=== PATIENT | female | born 1995 | race Caucasian/White ===

== ENCOUNTER 2019-07-14 13:03 | Emergency (ER) | payer OTHER, MEDICAID ==
[2019-07-14 13:17] VITALS: BP 128/75
[2019-07-14] MEDS ORDERED: ACETAMINOPHEN 325 MG TABLET PO ONE (13:55)
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
== END 2019-07-14 14:40 | disposition home or self-care (01) ==
LOC: ER 13:03
DX: O26.892 Other specified pregnancy related conditions, second trimester (principal); R10.11 Right upper quadrant pain; R10.30 Lower abdominal pain, unspecified; V49.40XA Driver injured in collision with unspecified motor vehicles in traffic accident, initial encounter; Z88.0 Allergy status to penicillin; Z3A.19 19 weeks gestation of pregnancy
CPT/HCPCS: 99283

== ENCOUNTER 2019-12-10 16:17 | Inpatient (IN) | payer MEDICAID ==
[2019-12-10] MEDS ORDERED: RINGERS SOLUTION,LACTATED 1,000 ML IV ONE (16:21)
[2019-12-10 16:51] LABS: HEMATOCRIT 37.5 % (36.0-47.0); HEMOGLOBIN 13.2 g/dL (12.0-15.5); MEAN CORPUSCULAR HEMOGLOBIN 32.6 pg (27.0-33.4); MEAN CORPUSCULAR VOLUME 93 fl (80-97); PLATELET COUNT 152 10^3/uL (150-450); RED BLOOD COUNT 4.03 10^6/uL (3.72-5.28); RED CELL DISTRIBUTION WIDTH 13.4 % (11.5-14.0); WHITE BLOOD COUNT 8.2 10^3/uL (4.0-10.5)
[2019-12-10] MEDS ORDERED: OXYTOCIN/0.9 % SODIUM CHLORIDE 30 UNIT/500 ML RTUINJ IV PRN (17:08)
[2019-12-10 17:13] LABS: APPEARANCE,URINE SLIGHTLY-CLOUDY; BILIRUBIN,URINE NEGATIVE (NEGATIVE); COLOR,URINE YELLOW; GLUCOSE, URINE NEGATIVE (NEGATIVE); KETONES,URINE NEGATIVE (NEGATIVE); LEUKOCYTE ESTERASE,URINE MODERATE (NEGATIVE); NITRITE,URINE NEGATIVE (NEGATIVE); PROTEIN,URINE NEGATIVE (NEGATIVE); URINE SPECIFIC GRAVITY 1.013; UROBILINOGEN,URINE NEGATIVE mg/dL (<2.0)
[2019-12-10] MEDS ORDERED: OXYTOCIN 10 UNIT/ML VIAL ONE (17:15)
[2019-12-10] MEDS ORDERED: LIDOCAINE 1% INJ-PF (10 MG/ML) 30 ML SDV ONE (17:15)
[2019-12-10] MEDS ORDERED: MISOPROSTOL 0.2 MG TABLET ONE (17:15)
[2019-12-10] MEDS ORDERED: OXYTOCIN/0.9 % SODIUM CHLORIDE 30 UNIT/500 ML RTUINJ ONE (17:15)
[2019-12-10] MEDS ORDERED: MISOPROSTOL 0.2 MG TABLET PR ONE (17:16)
[2019-12-10] MEDS: RINGERS SOLUTION,LACTATED 1,000 ML IV PRN ×2 (17:20→23:22)
[2019-12-10 17:34] LABS: URINE AMPHETAMINES SCREEN NEGATIVE; URINE BARBITURATES SCREEN NEGATIVE; URINE BENZODIAZEPINES SCREEN NEGATIVE; URINE COCAINE SCREEN NEGATIVE; URINE MARIJUANA (THC) SCREEN NEGATIVE; URINE METHADONE SCREEN NEGATIVE; URINE PHENCYCLIDINE SCREEN NEGATIVE
--- NOTE | 2019-12-10 17:55 | Admission Physical ---
Datetime Report Generated by CPN: 12/10/2019 17:55 CURRENT ADMISSION Chief Complaint: Other Indication for Induction: IUGR; Oligohydramnios Admit Impression : Term, Intrauterine ; No Active Labor; Intact Membranes Admit Plan: Admit to Unit; Initiate Labor Induction Protocol ALLERGIES Medication Allergies: Yes Medication Allergies: amoxicillin/MO/Hives (12/10/2019) Latex: No Latex Allergies OBSTETRICAL HISTORY : 2 Para: 0 Term: 0 : 0 SAB: 1 IAB: 0 Ectopic: 0 Livin Cesareans: 0 VBACs: 0 Multiple Births: 0 Gestational Diabetes: No Rh Sensitization: No Incompetent Cervix: No CHRIS: No Infertility: No ART Treatment: No Uterine Anomaly: No IUGR: No Hx Previous C/S: No Macrosomia: No Hx Loss/Stillborn: No PIH: No Hx : No Placenta Previa/Abruption: No Depression/PP Depression: No PTL/PROM: No Post Hemorrhage: No Current Procedures: Ultrasound Obstetrical History Comments: G1-SAB G2-Current SEE RECORDS Alcohol: No Marijuana : No Cocaine: No Other Illicit Drugs: No Cigarettes: Never Smoker. 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 Surgery: No Heart Disease: No Hosp/Surgery: No Autoimmune Disorder: No Anesthetic Complications: No Kidney Disease: No Abnormal Pap Smear: Yes Neuro/Epilepsy: No Psychiatric Disorders: No Other Medical Diseases: No Hepatitis/Liver Disease: No Significant Family History: No Varicosities/Phlebitis: No Trauma/Violence : No Thyroid Dysfunction: No Medical History Comments: 06/09/2019-abn pap INFECTIOUS HISTORY Gonorrhea: No Genital Herpes: No Chlamydia: No Tuberculosis: No Syphilis: No Hepatitis: No HIV/AIDS Exposure: No Rash or Viral Illness: No HPV: No PHYSICAL EXAM General: Normal HEENT: Normal Neurologic: Normal Thyroid: Deferred Heart: Normal Lungs: Normal Breast: Deferred Back: Normal Abdomen: Normal Genitourinary Exam: Normal Extremities: Normal DTRs: Normal Pelvic Type: Adequate Vital Signs: Reviewed VAGINAL EXAM Dilatation: 3 Effacement: 70 Station: -2 Contraction Comments: none MEMBRANES Membranes: Intact FETUS A Monitoring: External US FHR- Baseline: 120 Variability: Moderate 6-25bpm Accelerations: 15X15 Decelerations: None FHR Category: Category I Presentation: Vertex Admit Comment: 24yo at 40+3ega with oligohydramnios of CLAUDINE 2.3. EFW 6#7oz. Unknown previously regardng oligohydramnios. Amnisure negative. GBS negative. Cvx favorable - will proceed with IOL. Pt reports that she was 6#5oz so growth may be constitutionaly. Risks/benefits/alternatives reviewed and she desires to proceed wiht procedure. ASCUS +HRHPV pap smear 06/2019. Will need pap colpo after delivery within 8-12 wks. Admit to labor and delivery and proceed with IOL and pitocin. PLANS FOR LABOR AND DELIVERY Labor and Delivery: None Pain Management: Epidural Feeding Preference: Breast Benefit of Breast Feed Discussed: Yes Circumcision: Yes INFORMED CONSENT Informed Consent Obtained: Vaginal Delivery; Risks, Benefits and Alternatives Discussed Signature: with User ID: [email or web address]
[2019-12-11] MEDS ORDERED: FENTANYL/BUPIVACAINE/NS/PF 300 MCG/150 ML RTUINJ EPI ONE (00:15)
[2019-12-11] MEDS ORDERED: EPHEDRINE SULFATE INJ 50 MG/1 ML AMPULE ONE ×2 (00:15→02:50)
[2019-12-11] MEDS ORDERED: ROPIVACAINE HCL 0.2% INJ/PF (2 MG/ML) 20 ML SDV ONE ×3 (00:15→09:52)
[2019-12-11] MEDS ORDERED: FENTANYL CITRATE INJ/PF 100 MCG/2 ML AMPUL ONE (02:01)
[2019-12-11] MEDS ORDERED: TERBUTALINE SULFATE INJ/PF 1 MG/1 ML SDV ONE (04:00)
[2019-12-11] MEDS: RINGERS SOLUTION,LACTATED 1,000 ML IV PRN ×2 (04:06→13:52)
--- NOTE | 2019-12-11 04:32 | L&D Progress Notes ---
PROGRESS NOTES Datetime Report Generated by CPN: 12/11/2019 04:32 PROGRESS NOTE Impression: Normal Progression of Labor Procedures: Sterile Vag Exam Plan: Continue Present Management; Induction Informed Consent Obtained: Vaginal Delivery; Induction of Labor; Risks, Benefits and Alternatives Discussed Vital Signs : Reviewed Comment: cervical exam by admitting nurse I suspect was generous as when I checked her at midnight (I called her unchaged but truly would have called her 2-3/40-50/-2 with more firm cervix). Now she has had to obtain a 2nd epidural to help with comfort. Baby having late and variables and cvx exam now 4.5/75/-2 and cervix is much softer and more favorable. Pitocin already stopped and strip improved. Will give terb and D5 bolus. Restart pitocin in 1 hr. Now reassuring FWB and patient is just getting comfortable with second epidural. VAGINAL EXAM Dilatation: 5 Effacement: 75 Station: -2 Contractions: q 2 LAST VAGINAL EXAM-NURSING Nursing Exam Dilitation: unchanged per previous exam Nursing Exam Effacement: 70 Nursing Exam Station: -2 MEMBRANES Membranes: Intact FETUS A FHR - Baseline: 125 Monitoring: External US Accelerations: 15X15 Decelerations: None FHR Category: Category I Presentation: Vertex SIGNATURE SIGNATURE: [id number] Signature: with User ID: [email or web address]
[2019-12-11] MEDS ORDERED: OXYTOCIN/0.9 % SODIUM CHLORIDE 30 UNIT/500 ML RTUINJ ONE (07:38)
[2019-12-11] MEDS ORDERED: ONDANSETRON HCL INJ/PF 4 MG/2 ML SDV IV ONE (09:15)
[2019-12-11] MEDS ORDERED: ONDANSETRON HCL INJ/PF 4 MG/2 ML SDV ONE (09:17)
[2019-12-11] MEDS ORDERED: DIPHENHYDRAMINE HCL 25 MG CAPSULE PO PRN (12:51)
[2019-12-11] MEDS ORDERED: PROMETHAZINE HCL 25 MG SUPP.RECT PR PRN (12:51)
[2019-12-11] MEDS ORDERED: MEASLES,MUMPS&RUBELLA VACC/PF 0.5 ML VIAL SUBCUT PRN (12:51)
[2019-12-11] MEDS ORDERED: ACETAMINOPHEN 650 MG SUPP.RECT PR PRN (12:51)
[2019-12-11] MEDS ORDERED: NA PHOS,M-B/NA PHOS,DI-BA (ADULT) 133 ML ENEMA PR PRN (12:51)
[2019-12-11] MEDS ORDERED: PSEUDOEPHEDRINE HCL 30 MG TABLET PO PRN (12:51)
[2019-12-11] MEDS ORDERED: DIBUCAINE 1% OINTMENT 28 GM TP PRN (12:51)
[2019-12-11] MEDS ORDERED: DIPH/PERTUSS(ACELL)/TETANUS VAC/PF 0.5 ML SYR (>=10YO) IM PRN (12:51)
[2019-12-11] MEDS ORDERED: OXYTOCIN/0.9 % SODIUM CHLORIDE 30 UNIT/500 ML RTUINJ IV PRN (12:51)
[2019-12-11] MEDS ORDERED: ACETAMINOPHEN WITH CODEINE #3 TABLET PO PRN (12:51)
[2019-12-11] MEDS ORDERED: GLYCERIN/WITCH HAZEL LEAF 1 EACH MED..WIPE TP PRN (12:51)
[2019-12-11] MEDS ORDERED: MAGNESIUM HYDROXIDE SUSP 30 ML UDCUP PO PRN (12:51)
[2019-12-11] MEDS ORDERED: PROMETHAZINE HCL INJ 25 MG/1 ML VIAL IV PRN (12:51)
[2019-12-11] MEDS ORDERED: PROMETHAZINE HCL 25 MG TABLET PO PRN (12:51)
[2019-12-11] MEDS ORDERED: ZOLPIDEM TARTRATE 5 MG TABLET PO PRN (12:51)
[2019-12-11] MEDS ORDERED: BENZOCAINE/MENTHOL AEROSOL SPRAY 56 ML TOP PRN (12:51)
--- NOTE | 2019-12-11 12:58 | Warning Signs in Babies ---
VOD Warning Signs Datetime Report Generated by [facility]: 12/11/2019 12:58 VOD#608 -Warning Signs in Babies: Needs to be viewed. (12/10/2019 16:18:Milagros Clancy RN)
--- NOTE | 2019-12-11 14:34 | Delivery Summary ---
Del Sum A-C Datetime Report Generated by CPN: 12/11/2019 14:34 DELIVERY PERSONNEL DELIVERY PERSONNEL: [id number] Delivery Doctor:: [place] CNM Labor and Delivery Nurse:: Milagros Clancy RNtelegraphic typewriter installer Nurse:: Solomon Hamilton RN Nursery Nurse:: Agustina Díaz RN Nursery Nurse:: Brinda Reza RN Department Helper/SCALE INSTALLER: [facility] [place] Department Helper/SCALE INSTALLER: Dinorah Machuca, GINGER FARMER MATERNAL INFORMATION Delivery Anesthesia: Epidural Medications After Delivery: Pitocin 30 Units in 500ml NS/D5W Delivery QBL: 183 Maternal Complications: None Provider Comments: BENJI with loose nuchal and thick brown meconium covering baby. to mothers abd, grimacing, blue and with minimal tone. dried, cord clamped x 2, cut and handed off to Nursery RN for resuscitation. Spont placenta via huertas, brown stained, very small with thin cord. Bleeding stabilized, lacerations repaired. to NICU. LABOR SUMMARY EDC: 12/07/2019 00:00 No. Babies in Womb: 1 Attempted: No Labor Anesthesia: Epidural LABOR INFORMATION Reason for Induction: Not Applicable; Oligohydramnios Onset of Labor: 12/10/2019 23:54 Complete Dilatation: 12/11/2019 11:59 Oxytocin: Induction Group B Beta Strep: Negative Antibiotics # of Doses: 0 Name of Antibiotic Given: N/A Steroids Given: None Reason Steroids Not Administered: Not Applicable MEMBRANES Membranes Rupture Method: Artificial Rupture of Membranes: 12/10/2019 23:54 Length of Rupture (hr): 12.43 Amniotic Fluid Color: Particulate Meconium Amniotic Fluid Amount: Scant Amniotic Fluid Odor: Normal STAGES OF LABOR Stage 1 hr: 12 Stage 1 min: 5 Stage 2 hr: 0 Stage 2 min: 21 Stage 3 hr: 0 Stage 3 min: 3 Total Time in Labor hr: 12 Total Time in Labor min: 29 VAGINAL DELIVERY Episiotomy: None Laceration #1: Vaginal; Periurethral Laceration Extension #1: First Degree Laceration Repair: Yes Laceration Repair Note: 1*bilateral labial repaired with chromic 1*vaginal/perineal reapaired with chromic Sponge Count Correct: Yes Sharps Count Correct: Yes CSECTION DELIVERY Primary Indication: N/A Secondary Indication: N/A CSection Incidence: N/A Labor: N/A Elective: N/A CSection Incision: N/A BABY A INFORMATION Delivery Date/Time: 12/11/2019 12:20 Method of Delivery: Vaginal Nurse Controlled Delivery: No Born in Route : No : N/A Forceps: N/A Vacuum Extraction: N/A Shoulder Dystocia : No PRESENTATION/POSITION BABY A Presentation: Cephalic Cephalic Presentation: Vertex Vertex Position: Left Occipital Anterior Breech Presentation: N/A PLACENTA INFORMATION BABY A Placenta Delivery Time : 12/11/2019 12:23 Placenta Method of Delivery: Spontaneous Placenta Status: Delivered SCORES BABY A Heart Rate 1 min: >100 bpm Resp Effort 1 min: Absent Reflex Irritability 1 min: Grimace Muscle Tone 1 min: Flaccid Color 1 min: Blue/Pale Resuscitation Effort 1 min: Tactile Stimulation; Oxygen; PPV/NCPAP SCORE 1 MIN: 3 Heart Rate 5 min: >100 bpm Resp Effort 5 min: Slow, Irregular Reflex Irritability 5 min: Grimace Muscle Tone 5 min: Some Flexion of Extremities Color 5 min: Body [place], Extremities Blue Resuscitation Effort 5 min: Tactile Stimulation SCORE 5 MIN: 6 Heart Rate 10 min: >100 bpm Resp Effort 10 min: Good Cry Reflex Irritability 10 min: Cough or Sneeze or Pulls Away Muscle Tone 10 min: Active Motion Color 10 min: Body [place], Extremities Blue Resuscitation Effort 10 min: N/A SCORE 10 MIN: 9 INFANT INFORMATION BABY A Gestational Age at Delivery: 40.4 Gestational Status: Full Term- 39- 40.6 Weeks Infant Outcome : Liveborn Infant Condition : Stable Sex: Male IDENTIFICATION BABY A Verification Date/Time: 12/11/2019 12:29 ID Band Number: [id number] Mother's Name Verified: Yes RN Verifying Infant: TMartin,RN Additional Verifying Personnel: DPits,GINGER FARMER WEIGHT/LENGTH BABY A Infant Birthweight (gm): 2614 Weight (lb): 5 Infant Weight (oz): 12 Infant Length (in): 18.50 Length (cm): 46.99 CORD INFORMATION BABY A No. Cord Vessels: 3 Nuchal Cord : Around Neck x1, Loose Cord Blood Taken: Yes-For Eval (Mom's Blood Type - or O+) Suction: Mouth; Nose ASSESSMENT BABY A Infant Complications: Multiple Variable Decels; Meconium Physical Findings at Delivery: Molding of the Head Respirations: Grunting; Intercostal Retractions Skin to Skin: Yes Skin to Skin Time (min): 1 Counseling Director/ALS Called : No Care By: Russell Quezada RN Transferred To: NICU BABY B INFORMATION : N/A SIGNATURES Assignment: Chirag Tyler MD Signature: with User ID: [email or web address] : with User ID: [email or web address] : I was personally available for consultation and serving as supervising physician for the P.
--- NOTE | 2019-12-11 14:34 | Birth Certificate Data ---
Cert Data Datetime Report Generated by CPN: 12/11/2019 14:34 CERTIFICATE DATA 47a. Care: Yes (12/10/2019 16:18:Edda Peng RN) 47b. Date of First Visit: 04/16/2019 00:00 (12/10/2019 16:18:Adriana Ziegler RN) 47c. Date of Last Visit: 12/10/2019 00:00 (12/10/2019 16:18:Adriana Ziegler RN) 47d. Number of Visits: 13 (12/10/2019 16:18:Adriana Ziegler RN) 48a. Number of Prev Live Births: 0 (12/10/2019 16:18:Edda Peng RN) 48b. Now Livin (12/10/2019 16:18:Edda Peng RN) 48c. Live Births Now : 0 (12/10/2019 16:18:QS system process) 48e. Losses: 1 (12/10/2019 16:18:Edda Peng RN) 48f. Date of Last Preg Loss: 07/12/2018 00:00 (12/10/2019 16:18:Edda Danish RN) RISK FACTORS IN THIS 49a. Diabetes: No (12/10/2019 16:18:Edda Peng RN) 49b. Hypertension: No (12/10/2019 16:18:Edda Peng RN) 49c. Previous Births: 0 (12/10/2019 16:18:Edda Peng RN) 49d. Stillborns: No (12/10/2019 16:18:Edda Peng RN) 49d. IUGR: No (12/10/2019 16:18:Edda Peng RN) 49e. Infertility Treatment: No (12/10/2019 16:18:Edda Peng RN) 49f. Previous Cesareans: 0 (12/10/2019 16:18:Edda Peng RN) Mother's Height 50b. Height Inches: 64 (12/11/2019 04:50:QS system process) Mother's Weight 51a. Pre- Weight (lbs): 192 (12/10/2019 16:18:Adriana Ziegler RN) 51b. Weight at Delivery (lbs): 207 (12/11/2019 04:50:QS system process) 52. Dt Last Normal Menses Began: 03/02/2019 00:00 (12/10/2019 16:18:Edda Peng RN) Infections Present/Treated 53a. Gonorrhea: No (12/10/2019 16:18:Edda Peng RN) Results this Hospital Visit : Negative (12/10/2019 16:18:Edda Peng RN) 53b. Syphilis: No (12/10/2019 16:18:Edda Peng RN) 53c. Chlamydia: No (12/10/2019 16:18:Edda Peng RN) Results this Hospital Visit: Negative (12/10/2019 16:18:Edda Peng RN) 53d. Hepatitis B: No (12/10/2019 16:18:Edda Peng RN) Results this Hospital Visit: Negative (12/10/2019 16:18:Edda Peng RN) 53e. Hepatitis C: Negative (12/10/2019 16:18:Milagros Clancy RN) 53h. Mother Tested for HBsAG: Yes (12/10/2019 16:18:Edda Peng RN) 53i. Date Tested: 06/09/2019 00:00 (12/10/2019 16:18:Adriana Ziegler RN) 53j. Test Result: Negative (12/10/2019 16:18:Edda Peng RN) Obstetric Procedures 54a, b, c. Obstetric Procedures: Ultrasound (12/10/2019 16:18:Edda Peng RN) Cigarette Smoking Cigarette Smoking: Never Smoker. [id number] (12/10/2019 16:18:Edda Peng RN) 55a. 3 Months Before Preg - Ci (12/10/2019 16:18:Edda Peng RN) 55b. 1st Trimester of Preg- Ci (12/10/2019 16:18:Edda Peng RN) 55c. 2nd Trimester of Preg- Ci (12/10/2019 16:18:Edda Peng RN) 55d. 3rd Trimester of Preg- Ci (12/10/2019 16:18:Edda Peng RN) Onset of Labor 56a. PROM >12 Hrs: 12.43 (12/10/2019 23:54:QS system process) 56b. Precipitous Labor <3 Hrs: 12 (12/10/2019 16:18:QS system process) 56c. Prolonged Labor > 20 Hrs: 12 (12/10/2019 16:18:QS system process) 57a. Induction of Labor: Induction (12/10/2019 16:18:Yesenia Ferrer RN) 57c. Non-Vertex Presentation A: Vertex (12/10/2019 16:18:Nataly Clement RN) 57d. Steroids - Lung Mat: None (12/10/2019 16:18:Yesenia Ferrer RN) 57d. Steroids - Lung Mat: Not Applicable (12/10/2019 16:18:Yesenia Ferrer RN) 57f. Mat [place] or Temp >100.4: 98.8 (12/10/2019 16:18:Milagros Clancy RN) 57g. Moderate/Heavy Meconium: Particulate Meconium (12/11/2019 09:37:Milagros Clancy RN) 57h. Intolerance of Labor: N/A (12/10/2019 16:18:Nataly Clement RN) : N/A (12/10/2019 16:18:Nataly Clement RN) 57i. Epidural/Spinal Anesthesia: Epidural (12/10/2019 16:18:Yesenia Ferrer RN) Method of Delivery 58a. Forceps - Unsuccessful A: N/A (12/10/2019 16:18:Nataly Clement RN) 58b. Vacuum - Unsuccessful A: N/A (12/10/2019 16:18:Nataly Clement RN) 58c. Presentation at 58c. Presentation at - A : Vertex (12/10/2019 16:18:Nataly Clement RN) 58c. Presentation at - A : N/A (12/10/2019 16:18:Nataly Clement RN) 58c. Presentation at - A : Cephalic (12/10/2019 16:18:Nataly Clement RN) Final Route and Method of Del 58d. Baby A Route/Delivery: Vaginal (12/11/2019 12:20:Nataly Clement RN) 58e. Trial of Labor Attempted: No (12/10/2019 16:18:Yesenia Ferrer RN) 58e. Trial of Labor Attempted A: N/A (12/10/2019 16:18:Yesenia Ferrer RN) 58e. Trial of Labor Attempted B: N/A (12/10/2019 16:18:Yesenia Ferrer RN) Maternal Morbidity 59b. 3rd or 4th Degree Lacs: Vaginal; Periurethral (12/10/2019 16:18:Solomon Hamilton RN) 59b. 3rd or 4th Degree Lacs: First Degree (12/10/2019 16:18:Solomon Alfonso, RN) Birthweight Baby A: 2614 (12/10/2019 16:18:Agustina Díaz RN) 60a. Pounds : 5 (12/10/2019 16:18:QS system process) 60b. Ounces: 12 (12/10/2019 16:18:QS system process) 61. GA at Delivery Baby A: 40.4 (12/10/2019 16:18:Nataly Clement RN) : Full Term- 39- 40.6 Weeks (12/10/2019 16:18:QS system process) 62a. 5 Minute Baby A: 6 (12/10/2019 16:18:QS system process) 62b. 10 Minute Baby A: 9 (12/10/2019 16:18:QS system process)
[2019-12-11] MEDS ORDERED: IBUPROFEN 800 MG TABLET ONE (14:46)
[2019-12-11] MEDS: IBUPROFEN 800 MG TABLET PO SCH ×2 (14:48→21:06)
[2019-12-11] MEDS: DOCUSATE SODIUM 100 MG CAPSULE PO SCH (18:23)
[2019-12-11] MEDS: FERROUS SULFATE 325 MG TABLET PO SCH (18:23)
[2019-12-11] MEDS: FAMOTIDINE 20 MG TABLET PO SCH (21:06)
[2019-12-12] MEDS: ACETAMINOPHEN WITH CODEINE #3 TABLET PO PRN (01:17)
[2019-12-12] MEDS: IBUPROFEN 800 MG TABLET PO SCH ×3 (05:12→21:10)
[2019-12-12 07:00] LABS: HEMATOCRIT 33.3 % (36.0-47.0); HEMOGLOBIN 11.4 g/dL (12.0-15.5); MEAN CORPUSCULAR HEMOGLOBIN 32.4 pg (27.0-33.4); MEAN CORPUSCULAR HGB CONC 34.2 g/dL (32.0-36.0); MEAN CORPUSCULAR VOLUME 95 fl (80-97); PLATELET COUNT 118 10^3/uL (150-450); RED BLOOD COUNT 3.51 10^6/uL (3.72-5.28); WHITE BLOOD COUNT 14.1 10^3/uL (4.0-10.5)
--- NOTE | 2019-12-12 10:25 | PDOC PROGRESS REPORT ---
Subjective-OB Progress Note for:: 12/12/19 Subjective: Pt doing well, no concerns. She reports voiding w/o difficulty, light bleeding, reg diet. Physical Exam (OB) Vital Signs: Temp Pulse Resp BP Pulse Ox 97.9 F 79 18 125/70 99 12/12/19 07:14 12/12/19 07:14 12/12/19 07:14 12/12/19 07:14 12/12/19 07:14 Intake & Output 12/11/19 12/12/19 12/13/19 06:59 06:59 06:59 Intake Total 1208 1240 Balance 1208 1240 Weight 94.1 kg - Maternal Morbidity 59. Maternal Morbidity (serious complications experinced by the mother associated with labor and delivery: None of the above - Lochia Lochia Amount: Small 10-25 ml Lochia Color: Rubra/Red - Abdomen Description: Soft Hernia Present: No Fundal Description: Firm, Midline Fundal Height: u/u - u/2 Objective-Diagnostic Laboratory: 12/12/19 06:40 12/12/19 12/12/19 06:40 06:40 WBC 14.1 H RBC 3.51 L Hgb 11.4 L Hct 33.3 L MCV 95 MCH 32.4 MCHC 34.2 RDW 14.0 Plt Count 118 L Blood Type O NEGATIVE Assessment and Plan(PN) - Assessment and Plan (1) Encounter for induction of labor Is this a current diagnosis for this admission?: Yes (2) Laceration, obstetrical, first degree Is this a current diagnosis for this admission?: Yes (3) Oligohydramnios Qualifiers: Fetus number: single or unspecified fetus Trimester: third trimester Qualified Code(s): O41.03X0 - Oligohydramnios, third trimester, not applicable or unspecified Is this a current diagnosis for this admission?: Yes (4) Thick meconium stained amniotic fluid Is this a current diagnosis for this admission?: Yes (5) Vaginal delivery Is this a current diagnosis for this admission?: Yes (6) IUGR (intrauterine growth retardation), delivered, current hospitalization Is this a current diagnosis for this admission?: Yes (7) Post-dates Qualifiers: Post-term type: 40-42 weeks gestation Qualified Code(s): O48.0 - Post-term Is this a current diagnosis for this admission?: Yes - Time Spent with Patient Time with patient: Less than 15 minutes Medications reviewed and adjusted accordingly: Yes - Disposition Anticipated Discharge Disposition: Home, Self Care Anticipated Discharge Timeframe: within 24 hours
[2019-12-12] MEDS: FERROUS SULFATE 325 MG TABLET PO SCH ×2 (10:27→18:47)
[2019-12-12] MEDS: DOCUSATE SODIUM 100 MG CAPSULE PO SCH ×2 (10:27→18:47)
[2019-12-12] MEDS: FAMOTIDINE 20 MG TABLET PO SCH ×2 (10:27→21:12)
[2019-12-12] MEDS: PRENATAL VITAMIN W DHA CAPSULE PO SCH (10:27)
[2019-12-12] MEDS: SENNOSIDES/DOCUSATE 8.6-50 MG 1 EACH TABLET PO SCH (10:28)
[2019-12-13] MEDS: ACETAMINOPHEN WITH CODEINE #3 TABLET PO PRN (04:25)
[2019-12-13] MEDS: IBUPROFEN 800 MG TABLET PO SCH ×2 (05:00→13:36)
[2019-12-13] MEDS: SENNOSIDES/DOCUSATE 8.6-50 MG 1 EACH TABLET PO SCH (09:20)
[2019-12-13] MEDS: FAMOTIDINE 20 MG TABLET PO SCH (09:20)
[2019-12-13] MEDS: FERROUS SULFATE 325 MG TABLET PO SCH ×2 (09:20→17:12)
[2019-12-13] MEDS: DOCUSATE SODIUM 100 MG CAPSULE PO SCH ×2 (09:20→17:12)
[2019-12-13] MEDS: PRENATAL VITAMIN W DHA CAPSULE PO SCH (09:20)
--- NOTE | 2019-12-13 09:26 | PDOC DISCHARGE SUMMARY ---
Impression - Admit/DC Date/PCP Admission Date/Primary Care Provider: 12/10/19 16:17 TSERING BEARDEN MD Discharge Date: 12/13/19 - PP Day #2, doing well, baby under Kev-lights this morning. O negative/ Baby is O Positive. Pt needs Rhogam. - Discharge Diagnosis (1) Encounter for induction of labor Is this a current diagnosis for this admission?: Yes (2) IUGR (intrauterine growth retardation), delivered, current hospitalization Is this a current diagnosis for this admission?: Yes (3) Laceration, obstetrical, first degree Is this a current diagnosis for this admission?: Yes (4) Oligohydramnios Is this a current diagnosis for this admission?: Yes (5) Post-dates Is this a current diagnosis for this admission?: Yes (6) Thick meconium stained amniotic fluid Is this a current diagnosis for this admission?: Yes (7) Vaginal delivery Is this a current diagnosis for this admission?: Yes - Additional Information Resuscitation Status: Full Code Discharge Diet: As Tolerated, Regular Discharge Activity: Activity As Tolerated, No Lifting Over 10 Pounds, Pelvic Rest Referrals: TSERING BEARDEN MD [Primary Care Provider] - Prescriptions: Ibuprofen [Motrin 800 mg Tablet] 800 mg PO Q8 #60 tablet Home Medications: 95/Iron Fum/Folic/Dha [ + Dha Combo Pack] 1 each PO DAILY 12/10/19 Ibuprofen [Motrin 800 mg Tablet] 800 mg PO Q8 #60 tablet 12/13/19 HPI Reason(s) for Admission: Onset of Labor Procedures: NST, Ultrasound Intrapartum Procedure(s): Spontaneous Vaginal Delivery Complication(s): Laceration-Periurethral Laceration-Degree: 1st Hospital Course 59. Maternal Morbidity (serious complications experinced by the mother associated with labor and delivery: None of the above Results Laboratory Results: WBC 14.1 10^3/uL (4.0-10.5) H 12/12/19 06:40 RBC 3.51 10^6/uL (3.72-5.28) L 12/12/19 06:40 Hgb 11.4 g/dL (12.0-15.5) L 12/12/19 06:40 Hct 33.3 % (36.0-47.0) L 12/12/19 06:40 MCV 95 fl (80-97) 12/12/19 06:40 MCH 32.4 pg (27.0-33.4) 12/12/19 06:40 MCHC 34.2 g/dL (32.0-36.0) 12/12/19 06:40 RDW 14.0 % (11.5-14.0) 12/12/19 06:40 Plt Count 118 10^3/uL (150-450) L 12/12/19 06:40 Urine Color YELLOW 12/10/19 16:25 Urine Appearance SLIGHTLY-CLOUDY 12/10/19 16:25 Urine pH 8.0 (5.0-9.0) 12/10/19 16:25 Ur Specific [place] 1.013 12/10/19 16:25 Urine Protein NEGATIVE mg/dL (NEGATIVE) 12/10/19 16:25 Urine Glucose (UA) NEGATIVE mg/dL (NEGATIVE) 12/10/19 16:25 Urine Ketones NEGATIVE mg/dL (NEGATIVE) 12/10/19 16:25 Urine Blood NEGATIVE (NEGATIVE) 12/10/19 16:25 Urine Nitrite NEGATIVE (NEGATIVE) 12/10/19 16:25 Urine Bilirubin NEGATIVE (NEGATIVE) 12/10/19 16:25 Urine Urobilinogen NEGATIVE mg/dL (<2.0) 12/10/19 16:25 Ur Leukocyte Esterase MODERATE (NEGATIVE) H 12/10/19 16:25 Urine Ascorbic Acid NEGATIVE (NEGATIVE) 12/10/19 16:25 Membranes Rupture NEGATIVE (NEGATIVE) 12/10/19 17:05 Urine Opiates Screen NEGATIVE 12/10/19 16:25 Urine Methadone Screen NEGATIVE 12/10/19 16:25 Ur Barbiturates Screen NEGATIVE 12/10/19 16:25 Ur Phencyclidine Scrn NEGATIVE 12/10/19 16:25 Ur Amphetamines Screen NEGATIVE 12/10/19 16:25 U Benzodiazepines Scrn NEGATIVE 12/10/19 16:25 Urine Cocaine Screen NEGATIVE 12/10/19 16:25 U Marijuana (THC) Screen NEGATIVE 12/10/19 16:25 Blood Type O NEGATIVE 12/12/19 06:40 Antibody Screen NEGATIVE 12/10/19 16:38 Screen NEGATIVE 12/12/19 06:40 Plan Plan of Treatment: d/c home. f/up with [facility] in 4 wks for PP check Time Spent: Less than 30 Minutes
[2019-12-13 10:40] VITALS: BP 132/77
[2019-12-13] MEDS ORDERED: MEASLES,MUMPS&RUBELLA VACC/PF 0.5 ML VIAL SUBCUT PRN (12:30)
[2019-12-13] MEDS ORDERED: PROMETHAZINE HCL INJ 25 MG/1 ML VIAL IV PRN (12:30)
[2019-12-13] MEDS ORDERED: DIPH/PERTUSS(ACELL)/TETANUS VAC/PF 0.5 ML SYR (>=10YO) IM PRN (12:30)
== END 2019-12-13 18:51 | disposition home or self-care (01) | DRG 806 ==
LOC: LR 16:17 → 2S 12-11 17:00
PROVIDERS: ADMIT Student in an Organized Health Care Education/Training Program; ATTEND Student in an Organized Health Care Education/Training Program
PROC: 10E0XZZ Delivery of Products of Conception, External Approach (ICD-10-PCS; principal; 2019-12-11)
PROC: 0HQ9XZZ Repair Perineum Skin, External Approach (ICD-10-PCS; 2019-12-11)
PROC: 0UQMXZZ Repair Vulva, External Approach (ICD-10-PCS; 2019-12-11)
DX: O36.5930 Maternal care for other known or suspected poor fetal growth, third trimester, not applicable or unspecified (principal); O41.03X0 Oligohydramnios, third trimester, not applicable or unspecified; Z37.0 Single live birth; O77.0 Labor and delivery complicated by meconium in amniotic fluid; O76 Abnormality in fetal heart rate and rhythm complicating labor and delivery; O69.81X0 Labor and delivery complicated by cord around neck, without compression, not applicable or unspecified; O70.0 First degree perineal laceration during delivery; O71.82 Other specified trauma to perineum and vulva; Z88.0 Allergy status to penicillin; Z3A.40 40 weeks gestation of pregnancy; O48.0 Post-term pregnancy
CPT/HCPCS: 1967; 36415; 80307; 81005; 84112; 85027; 85461; 86592; 86850; 86900; 86901; 88307; 94760; J2405; J2590; J2790; J2795; J3010; J3105; J3490